=== PATIENT | female | born 1990 | race Caucasian/White ===

== ENCOUNTER 2017-06-12 11:29 | Emergency (ER) | payer OTHER ==
[~2017-06-12] VITALS: Ht 157.5 cm; Wt 51.4 kg
[2017-06-12 11:47] VITALS: BP 121/68
[2017-06-12] MEDS ORDERED: SULF1TAB49 PO (13:11)
[2017-06-12] MEDS ORDERED: CEPH-572 PO (13:11)
== END 2017-06-12 13:21 | disposition home or self-care (01) ==
LOC: ER 11:30
DX: L03.116 Cellulitis of left lower limb (principal); Z86.14 Personal history of Methicillin resistant Staphylococcus aureus infection
CPT/HCPCS: 99283

== ENCOUNTER 2017-06-13 20:45 | Inpatient (IN) | payer MEDICAID, OTHER ==
[~2017-06-13] VITALS: Ht 157.5 cm; Wt 59.1 kg
[~2017-06-13 20:45] MED LIST: CEPH-572 PO; SULF1TAB49 PO
[2017-06-13] MEDS ORDERED: morphine 4 MG/ML inj SYRINge IV ONE ×2 (21:55→23:25)
[2017-06-13] MEDS ORDERED: piperacillin/tazo 3.375gm/50ml 50 ML IV ONE (21:55)
[2017-06-13] MEDS ORDERED: ondansetron/PF 4mg/2ml inj IV ONE (22:50)
[2017-06-13 22:54] LABS: BASOPHILS # (AUTO) 0.1 X10'3 (0-0.2); BASOPHILS % (AUTO) 0.3 % (0-1); EOSINOPHILS # (AUTO) 0.1 X10'3 (0-0.9); EOSINOPHILS % (AUTO) 0.4 % (0-6); HEMATOCRIT 43.2 % (35.0-45.0); HEMOGLOBIN 14.6 g/dl (12.0-16.0); LYMPHOCYTES # (AUTO) 2.4 X10'3 (1.1-4.8); LYMPHOCYTES % (AUTO) 12.3 % (21-51); MEAN CORPUSCULAR HEMOGLOBIN 28.7 PG (27.0-31.0); MEAN CORPUSCULAR HGB CONC 33.7 % (33.0-36.5); MEAN CORPUSCULAR VOLUME 85.2 FL (78-98); MEAN PLATELET VOLUME 8.1 FL (7.4-10.4); MONOCYTES # (AUTO) 1.2 X10'3 (0-0.9); MONOCYTES % (AUTO) 6.3 % (2-12); NEUTROPHILS # (AUTO) 15.4 X10'3 (1.8-7.7); NEUTROPHILS % (AUTO) 80.7 % (42-75); PLATELET COUNT 300 X10'3 (140-440); RED BLOOD COUNT 5.07 X10'6 (4.20-5.60); RED CELL DISTRIBUTION WIDTH 13.2 % (11.5-14.5); WHITE BLOOD COUNT 19.1 X10'3 (4.5-11.0)
[2017-06-13 23:07] LABS: ALANINE AMINOTRANSFERASE 14 U/L (12-78); ALBUMIN 3.5 G/DL (3.4-5.0); ALBUMIN/GLOBULIN RATIO 0.7 (1.1-1.5); ALKALINE PHOSPHATASE 68 IU/L (46-116); ANION GAP 12 (8-16); ASPARTATE AMINO TRANSFERASE 15 U/L (10-37); BILIRUBIN,TOTAL 1.8 MG/DL (0.1-1.0); BLOOD UREA NITROGEN 8 MG/DL (7-18); CALCIUM 9.4 MG/DL (8.5-10.1); CHLORIDE 102 MMOL/L (99-107); GLUCOSE 108 MG/DL (70-104); POTASSIUM 4.2 MMOL/L (3.5-5.1); SODIUM 138 MMOL/L (135-145); TOTAL CARBON DIOXIDE 24.3 MMOL/L (24-32); TOTAL PROTEIN 8.4 G/DL (6.4-8.2); eGFR 68 ML/MIN
[2017-06-13] MEDS ORDERED: LIDOcaine 1.5% w/epinephrine 1:200,000 5ml ampul IJ ONE (23:15)
[2017-06-13] MEDS: normal saline 1000ml 1,000 ML IV SCH (23:36)
[2017-06-13] MEDS ORDERED: magnesium hydroxide 30ml (MOM) UD suspension PO PRN (23:40)
[2017-06-13] MEDS ORDERED: magnesium 4gm in 100ml NS 100 ML IV PRN (23:40)
[2017-06-13] MEDS ORDERED: mag hydrox/Alum hydrox/simeth 30ml oral suspension PO PRN (23:40)
[2017-06-13] MEDS ORDERED: acetaminophen 325mg tablet PO PRN (23:40)
[2017-06-13] MEDS ORDERED: magnesium 2GM in 50ml NS 50 ML IV PRN (23:40)
[2017-06-13] MEDS ORDERED: potassium Cl 20 mEq SR tablet PO PRN ×2 (23:40)
[2017-06-13] MEDS ORDERED: magnesium Cl slow-release 64mg tablet PO PRN (23:40)
[2017-06-13] MEDS ORDERED: HYDROcodone/acetaminophen 5mg/325mg tablet PO PRN (23:40)
[2017-06-13] MEDS ORDERED: potassium Cl 40MEQ/NS 500ml 500 ML IV PRN ×2 (23:40)
[2017-06-13] MEDS ORDERED: ondansetron/PF 4mg/2ml inj IV PRN (23:40)
[2017-06-13] MEDS ORDERED: normal saline 1000ML IV soln IVB ONE (23:45)
[2017-06-14] MEDS: HYDROcodone/acetaminophen 10/325mg tab PO PRN ×5 (00:59→20:34)
[2017-06-14] MEDS: temazepam 15mg capsule PO PRN ×2 (00:59→23:24)
[2017-06-14] MEDS ORDERED: nicotine 7mg patch - 24hr TD SCH (01:20)
[2017-06-14] MEDS: K and/or MAG REPLACEMENT MC SCH (08:00)
[2017-06-14 08:25] VITALS: BP 120/61
[2017-06-14] MEDS: piperacillin/tazo 4.5gm/100ml 100 ML IV SCH ×3 (08:50→23:24)
[2017-06-14] MEDS: heparin, porcine 5000 units/ml vial SQ SCH ×3 (08:50→20:35)
[2017-06-14] MEDS: normal saline 1000ml 1,000 ML IV SCH ×2 (08:54→20:29)
[2017-06-14 10:54] LABS: BASOPHILS % (AUTO) 0.2 % (0-1); EOSINOPHILS # (AUTO) 0.3 X10'3 (0-0.9); EOSINOPHILS % (AUTO) 1.6 % (0-6); HEMATOCRIT 39.5 % (35.0-45.0); HEMOGLOBIN 13.6 g/dl (12.0-16.0); LYMPHOCYTES # (AUTO) 1.6 X10'3 (1.1-4.8); LYMPHOCYTES % (AUTO) 10.3 % (21-51); MEAN CORPUSCULAR HEMOGLOBIN 29.2 PG (27.0-31.0); MEAN CORPUSCULAR HGB CONC 34.4 % (33.0-36.5); MEAN CORPUSCULAR VOLUME 84.9 FL (78-98); MEAN PLATELET VOLUME 7.9 FL (7.4-10.4); MONOCYTES # (AUTO) 0.8 X10'3 (0-0.9); MONOCYTES % (AUTO) 5.4 % (2-12); NEUTROPHILS # (AUTO) 13.1 X10'3 (1.8-7.7); NEUTROPHILS % (AUTO) 82.5 % (42-75); PLATELET COUNT 250 X10'3 (140-440); RED BLOOD COUNT 4.66 X10'6 (4.20-5.60); RED CELL DISTRIBUTION WIDTH 13.2 % (11.5-14.5); WHITE BLOOD COUNT 15.9 X10'3 (4.5-11.0)
[2017-06-14 11:11] LABS: ALANINE AMINOTRANSFERASE 13 U/L (12-78); ALBUMIN/GLOBULIN RATIO 0.7 (1.1-1.5); ALKALINE PHOSPHATASE 58 IU/L (46-116); ANION GAP 10 (8-16); ASPARTATE AMINO TRANSFERASE 12 U/L (10-37); BILIRUBIN,TOTAL 1.8 MG/DL (0.1-1.0); BLOOD UREA NITROGEN 9 MG/DL (7-18); BUN/CREATININE RATIO 8.4 (6.6-38.0); CALCIUM 8.5 MG/DL (8.5-10.1); CHLORIDE 105 MMOL/L (99-107); CREATININE 1.07 MG/DL (0.40-0.90); GLUCOSE 106 MG/DL (70-104); POTASSIUM 4.4 MMOL/L (3.5-5.1); SODIUM 138 MMOL/L (135-145); TOTAL CARBON DIOXIDE 22.7 MMOL/L (24-32); TOTAL PROTEIN 7.3 G/DL (6.4-8.2); eGFR 63 ML/MIN
[2017-06-14 18:00] VITALS: BP 104/34
[2017-06-14 22:00] VITALS: BP 116/74
[2017-06-14] MEDS: nicotine 7mg patch - 24hr TD SCH (23:19)
[2017-06-15] MEDS: HYDROcodone/acetaminophen 10/325mg tab PO PRN ×3 (01:07→09:00)
[2017-06-15 05:00] VITALS: BP 100/64
[2017-06-15 05:28] LABS: BASOPHILS % (AUTO) 0.4 % (0-1); EOSINOPHILS # (AUTO) 0.3 X10'3 (0-0.9); EOSINOPHILS % (AUTO) 2.5 % (0-6); HEMATOCRIT 40.2 % (35.0-45.0); HEMOGLOBIN 13.6 g/dl (12.0-16.0); LYMPHOCYTES # (AUTO) 2.9 X10'3 (1.1-4.8); MEAN CORPUSCULAR HGB CONC 33.9 % (33.0-36.5); MEAN CORPUSCULAR VOLUME 85.7 FL (78-98); MEAN PLATELET VOLUME 8.1 FL (7.4-10.4); MONOCYTES # (AUTO) 0.7 X10'3 (0-0.9); MONOCYTES % (AUTO) 7.3 % (2-12); NEUTROPHILS # (AUTO) 6.1 X10'3 (1.8-7.7); NEUTROPHILS % (AUTO) 60.8 % (42-75); PLATELET COUNT 209 X10'3 (140-440); RED BLOOD COUNT 4.69 X10'6 (4.20-5.60); RED CELL DISTRIBUTION WIDTH 12.8 % (11.5-14.5)
[2017-06-15 05:59] LABS: ALANINE AMINOTRANSFERASE 14 U/L (12-78); ALBUMIN 2.8 G/DL (3.4-5.0); ALBUMIN/GLOBULIN RATIO 0.6 (1.1-1.5); ALKALINE PHOSPHATASE 55 IU/L (46-116); ANION GAP 8 (8-16); ASPARTATE AMINO TRANSFERASE 14 U/L (10-37); BILIRUBIN,TOTAL 1.6 MG/DL (0.1-1.0); BLOOD UREA NITROGEN 7 MG/DL (7-18); BUN/CREATININE RATIO 7.4 (6.6-38.0); CALCIUM 8.9 MG/DL (8.5-10.1); CHLORIDE 108 MMOL/L (99-107); CREATININE 0.94 MG/DL (0.40-0.90); GLUCOSE 93 MG/DL (70-104); POTASSIUM 3.7 MMOL/L (3.5-5.1); SODIUM 142 MMOL/L (135-145); TOTAL PROTEIN 7.3 G/DL (6.4-8.2); eGFR 73 ML/MIN
[2017-06-15] MEDS: normal saline 1000ml 1,000 ML IV SCH ×2 (06:38→07:49)
[2017-06-15] MEDS: nicotine 7mg patch - 24hr TD SCH (07:49)
[2017-06-15] MEDS: piperacillin/tazo 4.5gm/100ml 100 ML IV SCH ×2 (07:58→09:00)
[2017-06-15] MEDS: K and/or MAG REPLACEMENT MC SCH (08:00)
[2017-06-15 10:00] VITALS: BP 106/50
[2017-06-15] MEDS ORDERED: CEPH250T PO (10:39)
== END 2017-06-15 11:45 | disposition home or self-care (01) | DRG 422 ==
LOC: ER 20:46 → ED HOLD 23:36 → ORTHO 4S 06-14 08:27
PROVIDERS: ADMIT Internal Medicine; ATTEND Internal Medicine
PROC: 0Y9L0ZZ Drainage of Left Ankle Region, Open Approach (ICD-10-PCS; principal; 2017-06-13)
DX: E86.0 Dehydration (principal); L02.416 Cutaneous abscess of left lower limb; L03.116 Cellulitis of left lower limb; N28.9 Disorder of kidney and ureter, unspecified; F17.210 Nicotine dependence, cigarettes, uncomplicated; F15.90 Other stimulant use, unspecified, uncomplicated; Z86.14 Personal history of Methicillin resistant Staphylococcus aureus infection
CPT/HCPCS: 10060; 36415; 73610; 80053; 83605; 83735; 85025; 87040; 87070; 96365; 96375; 96376; 99285; A4649; A6266; A6446; A6449; J1644; J2270; J2405; J2543; J3490; J7030